=== PATIENT | male | born 1945 | race Two or more races ===

== ENCOUNTER 2016-09-02 16:38 | Inpatient (IN) | payer MEDICARE, MEDICAID ==
[~2016-09-02] VITALS: Ht 182.9 cm; Wt 105.2 kg
--- NOTE | 2016-09-02 16:58 | NUR ---
PT C/O PAIN AND SWELLING TO PENIS X 3 DAYS. PLACED ON PT ON MONITOR. VSS.
--- NOTE | 2016-09-02 17:05 | NUR ---
RAC #20 IV ACCESS. BLOOD SAMPLE COLLECTED SENT TO LAB.
[2016-09-02] MEDS ORDERED: IV SET PRIMARY PUMP SET 1 EA INFUS.SET MC ONE ×2 (17:14→19:25)
[2016-09-02] MEDS ORDERED: IV NS 0.9% 500 ML IV ONE (17:14)
--- NOTE | 2016-09-02 17:14 | NUR ---
CALLED NURSING SUP. FOR MS BED
--- NOTE | 2016-09-02 17:21 | NUR ---
CALLED PHARMACY FOR JOE
[2016-09-02] MEDS ORDERED: FLUO40CA49 PO (17:24)
[2016-09-02] MEDS ORDERED: SENN8.6T6 PO (17:24)
[2016-09-02] MEDS ORDERED: CLON0.5T4 PO (17:24)
[2016-09-02] MEDS ORDERED: LORA2TAB PO (17:24)
[2016-09-02] MEDS ORDERED: AMLO2.5T PO (17:24)
[2016-09-02] MEDS ORDERED: QUET300T2 PO (17:24)
[2016-09-02] MEDS ORDERED: MAGN400O6 PO (17:24)
[2016-09-02] MEDS ORDERED: METO25TA20 PO (17:24)
[2016-09-02] MEDS ORDERED: TAMS0.4C34 PO (17:24)
[2016-09-02] MEDS ORDERED: FERR325T28 PO (17:24)
[2016-09-02] MEDS ORDERED: ATOR40TA PO (17:24)
[2016-09-02] MEDS ORDERED: FINA5TAB11 PO (17:24)
[2016-09-02] MEDS ORDERED: IBUP-1481 PO (17:24)
[2016-09-02] MEDS ORDERED: QUET25TA PO (17:24)
[2016-09-02 17:25] LABS: BASOPHILS % (AUTO) 0.4 % (0.0-2.0); EOSINOPHILS # (AUTO) 0.2 /CMM (0.0-0.7); EOSINOPHILS % (AUTO) 2.2 % (0.0-6.0); HEMATOCRIT 38 % (39-51); HEMOGLOBIN 12.2 g/dL (13.5-17.5); LYMPHOCYTES # (AUTO) 1.9 /CMM (0.8-4.8); LYMPHOCYTES % (AUTO) 21.7 % (20.0-44.0); MEAN CORPUSCULAR HEMOGLOBIN 27 PG (26.0-33.0); MEAN CORPUSCULAR HGB CONC 33 g/dl (31.0-36.0); MEAN CORPUSCULAR VOLUME 83 fL (80-96); MONOCYTES # (AUTO) 1.1 /CMM (0.1-1.30); MONOCYTES % (AUTO) 12.8 % (2.0-12.0); NEUTROPHILS # (AUTO) 5.7 /CMM (1.8-8.9); NEUTROPHILS % (AUTO) 62.9 % (43.0-81.0); PLATELET COUNT (AUTO) 208 /CMM (150-450); RDW COEFFICIENT OF VARIATION 13.5 (11.5-15.0); RED BLOOD CELL COUNT(AUTO) 4.51 MIL/uL (4.5-6.0); WHITE BLOOD COUNT (AUTO) 8.9 K/uL (4.3-11.0)
[2016-09-02] MEDS ORDERED: MORPHINE SULFATE INJ 4 MG/ML DISP.SYRIN ONE (17:26)
[2016-09-02] MEDS ORDERED: IV NS 0.9% 500 ML BAG IV ONE (17:30)
[2016-09-02] MEDS ORDERED: MORPHINE SULFATE INJ 2 MG/ML DISP.SYRIN IV ONE (17:30)
[2016-09-02] MEDS ORDERED: PIPERACILLIN /TAZOBACTAM 3.375 G in IV D5W 50 ML IV ONE (17:30)
[2016-09-02 17:35] LABS: CALCIUM, SERUM 8.2 mg/dL (8.5-10.1); CREATININE 1.9 mg/dL (0.6-1.3); POTASSIUM 3.9 mmol/L (3.5-5.1)
--- NOTE | 2016-09-02 17:38 | NUR ---
ULTRASOUND AT BEDSIDE
[2016-09-02 17:41] LABS: ALBUMIN 3.1 g/dL (3.4-5.0); BILIRUBIN,DIRECT 0.1 mg/dL (0.0-0.2); BILIRUBIN,TOTAL 0.4 mg/dL (0.2-1.0); TOTAL PROTEIN, SERUM 8.5 g/dL (6.4-8.2)
--- NOTE | 2016-09-02 17:46 | NUR ---
PT GOING TO MS 200
[2016-09-02 17:51] LABS: INR 1.04 (0.87-1.13); PROTHROMBIN TIME 11.2 SECS (9.5-12.7)
--- NOTE | 2016-09-02 18:06 | NUR ---
PT TAKEN TO CT VIA JERMAINE
--- NOTE | 2016-09-02 18:15 | NUR ---
GAVE REPORT TO [facility] ROOM 200. WILL TRANSPORT PT ONCE RETURN FROM CT SCAN.
--- NOTE | 2016-09-02 18:19 | NUR ---
PER PT NOT SEPTIC NO NEED LACTIC ACID
--- NOTE | 2016-09-02 19:04 | NUR ---
EPIC PAGED, [facility] [place]
--- NOTE | 2016-09-02 19:13 | NUR ---
URINE SAMPLE COLLECTED SENT TO LAB
[2016-09-02] MEDS ORDERED: LEVOFLOXACIN 750 MG /D5W 150ML 150 ML IV ONE (19:25)
[2016-09-02] MEDS ORDERED: ENOXAPARIN SODIUM 40 MG/0.4 ML DISP.SYRIN SQ SCH (19:30)
[2016-09-02] MEDS ORDERED: QUETIAPINE FUMARATE 25 MG TABLET PO SCH (19:30)
[2016-09-02] MEDS ORDERED: ONDANSETRON HCL/PF 4 MG/2 ML VIAL IVP PRN (19:30)
[2016-09-02] MEDS ORDERED: LEVOFLOXACIN 750 MG /D5W 150ML 750 MG in PREMIX 1 EA IV SCH (19:30)
[2016-09-02] MEDS ORDERED: HYDROCODONE/APAP 5/325MG 1 EACH TABLET PO PRN (19:30)
[2016-09-02] MEDS: clonazePAM 0.5 MG TABLET PO SCH (19:30)
[2016-09-02] MEDS ORDERED: MORPHINE SULFATE INJ 2 MG/ML DISP.SYRIN IV PRN (19:30)
[2016-09-02] MEDS ORDERED: ZOLPIDEM TARTRATE 5 MG TABLET PO PRN (19:30)
[2016-09-02] MEDS ORDERED: ACETAMINOPHEN 325 MG TABLET PO PRN (19:30)
[2016-09-02] MEDS ORDERED: MAGNESIUM HYDROXIDE 30 ML UDC PO PRN (19:30)
[2016-09-02] MEDS ORDERED: LORAZEPAM INJ 2 MG/ML VIAL IV PRN (19:30)
[2016-09-02] MEDS ORDERED: MAG HYDROX/AL HYDROX/SIMETH 30 ML UDC PO PRN (19:30)
[2016-09-02 20:00] VITALS: BP 136/89
--- NOTE | 2016-09-02 20:00 | NUR ---
RN NOTES RECEIVED PT. FROM ER WITH DX. OF CELLULITIS,, A/OX4, FARSI SPEAKING, PT. PRIVATE PART IS SWOLLEN, DENIES PAIN, NO SOB, ADMISSION INSTRUCTION WAS GIVEN, CALL LIGHT WITHIN REACH, SIDERAILS UPX2 CONTINUE TO MONITOR
[2016-09-02 20:08] LABS: APPEARANCE,URINE TURBID (CLEAR); BILIRUBIN,URINE NEGATIVE (NEGATIVE); BLOOD, URINE 3+ Ery/uL (NEGATIVE); COLOR,URINE YELLOW (YELLOW); KETONES,URINE NEGATIVE (NEGATIVE); LEUKOCYTE ESTERASE ,URINE 2+ (NEGATIVE); NITRITE, URINE POSITIVE (NEGATIVE); PROTEIN,URINE 2+ mg/dl (NEGATIVE); UGLUCOSE NEGATIVE (NEGATIVE); UROBILINOGEN,URINE 0.2 EU/dL (0.2)
[2016-09-02 20:20] LABS: ADD URINE CULTURE YES; BACTERIA,URINE 4+ /HPF (None Seen); RBC,URINE 51-80 /HPF (0-2); SQUAMOUS EPITHELIAL CELL,UR 0-2 /HPF (None Seen); WBC,URINE TOO NUMEROUS TO COUN /HPF (0-3)
[2016-09-02] MEDS ORDERED: METOPROLOL TARTRATE 25 MG TABLET ONE (21:47)
[2016-09-02] MEDS ORDERED: SENNOSIDES 8.6 MG TABLET ONE (21:48)
[2016-09-02] MEDS ORDERED: QUETIAPINE FUMARATE 25 MG TABLET ONE (21:48)
[2016-09-02] MEDS ORDERED: TAMSULOSIN 0.4 MG CAP.SR.24H ONE (21:48)
[2016-09-02] MEDS ORDERED: FINASTERIDE (5 MG) 5 MG TABLET ONE (21:48)
[2016-09-02] MEDS ORDERED: ENOXAPARIN SODIUM 40 MG/0.4 ML DISP.SYRIN SQ ONE (21:49)
[2016-09-02] MEDS ORDERED: clonazePAM 0.5 MG TABLET ONE (21:51)
[2016-09-02] MEDS: FINASTERIDE (5 MG) 5 MG TABLET PO SCH (21:55)
[2016-09-02] MEDS: TAMSULOSIN 0.4 MG CAP.SR.24H PO SCH (21:55)
[2016-09-02] MEDS: METOPROLOL TARTRATE 25 MG TABLET PO SCH (21:56)
[2016-09-02] MEDS: SENNOSIDES 8.6 MG TABLET PO SCH (22:00)
--- NOTE | 2016-09-02 22:00 | NUR ---
RN NOTES SISTER CAME BUT PT. IS ALREADY SLEEPING.
[2016-09-03] MEDS ORDERED: SECONDARY IV SET 1 EA INFUS.SET MC ONE (00:48)
[2016-09-03] MEDS ORDERED: IV NS 0.9% 250 ML IV ONE (00:48)
[2016-09-03] MEDS ORDERED: PIPERACILLIN /TAZOBACTAM 2.25 G VIAL IV ONE ×2 (00:48→04:36)
[2016-09-03] MEDS ORDERED: IV SET PRIMARY PUMP SET 1 EA INFUS.SET MC ONE (00:48)
[2016-09-03] MEDS ORDERED: IV D5W 50 ML IV ONE ×2 (00:48→05:04)
[2016-09-03] MEDS: PIPERACILLIN /TAZOBACTAM 4.5 G in IV D5W 50 ML IV SCH ×6 (05:19→23:26)
[2016-09-03] MEDS ORDERED: Z GUARD REMEDY 4 OZ OINT TP ONE (05:20)
[2016-09-03 06:47] LABS: BASOPHILS % (AUTO) 0.2 % (0.0-2.0); EOSINOPHILS # (AUTO) 0.1 /CMM (0.0-0.7); EOSINOPHILS % (AUTO) 0.9 % (0.0-6.0); HEMATOCRIT 35 % (39-51); HEMOGLOBIN 11.5 g/dL (13.5-17.5); LYMPHOCYTES # (AUTO) 1.2 /CMM (0.8-4.8); LYMPHOCYTES % (AUTO) 13.8 % (20.0-44.0); MEAN CORPUSCULAR HEMOGLOBIN 27 PG (26.0-33.0); MEAN CORPUSCULAR HGB CONC 33 g/dl (31.0-36.0); MEAN CORPUSCULAR VOLUME 84 fL (80-96); MONOCYTES # (AUTO) 0.9 /CMM (0.1-1.30); MONOCYTES % (AUTO) 10.3 % (2.0-12.0); NEUTROPHILS # (AUTO) 6.6 /CMM (1.8-8.9); NEUTROPHILS % (AUTO) 74.8 % (43.0-81.0); PLATELET COUNT (AUTO) 198 /CMM (150-450); RDW COEFFICIENT OF VARIATION 14.6 (11.5-15.0); RED BLOOD CELL COUNT(AUTO) 4.19 MIL/uL (4.5-6.0); WHITE BLOOD COUNT (AUTO) 8.8 K/uL (4.3-11.0)
--- NOTE | 2016-09-03 06:59 | NUR ---
RN NOTES AWAKE, DENIES PAIN, NO SOB, MORNING CARE RENDERED, PT. NEEDS ATTENDED
--- NOTE | 2016-09-03 07:30 | NUR ---
MS RN NOTES RECEIVED PATIENT AWAKE ON BED, AOX3. BREATHING EVEN AND NON LABORED, DENIES ANY PAIN AT THIS TIME. CALL LIGHT WITHIN REACH, BED IN LOW POSITION FOR SAFETY MEASURES. WILL CONTINUE TO MONITOR
[2016-09-03 07:36] LABS: CALCIUM, SERUM 7.9 mg/dL (8.5-10.1); CREATININE 1.6 mg/dL (0.6-1.3); PHOSPHORUS 2.7 mg/dL (2.5-4.9); POTASSIUM 4.1 mmol/L (3.5-5.1)
[2016-09-03 08:00] VITALS: BP 142/89
--- NOTE | 2016-09-03 09:00 | NUR ---
MS RN NOTES DUE MEDS GIVEN. S/B DR. NEUMANN WITH NO NEW ORDERS MADE.
[2016-09-03] MEDS: clonazePAM 0.5 MG TABLET PO SCH ×2 (09:46→16:59)
[2016-09-03] MEDS: ATORVASTATIN 40 MG TABLET PO SCH (09:46)
[2016-09-03] MEDS: FINASTERIDE (5 MG) 5 MG TABLET PO SCH (09:47)
[2016-09-03] MEDS: AMLODIPINE BESYLATE 2.5 MG TABLET PO SCH (09:47)
[2016-09-03] MEDS: PANTOPRAZOLE 40 MG TABLET.DR PO SCH (09:47)
[2016-09-03] MEDS: FERROUS SULFATE (325 MG) 325 MG/TAB TABLET PO SCH (09:47)
[2016-09-03] MEDS: METOPROLOL TARTRATE 25 MG TABLET PO SCH ×2 (09:47→17:01)
[2016-09-03] MEDS: Z GUARD REMEDY 2 OZ OINT TP PRN (09:55)
[2016-09-03] MEDS: Z GUARD REMEDY 2 OZ OINT TP SCH (09:56)
[2016-09-03] MEDS: ENOXAPARIN SODIUM 40 MG/0.4 ML DISP.SYRIN SQ SCH (09:58)
--- NOTE | 2016-09-03 15:00 | NUR ---
MS RN NOTES PATIENT ASSISTED TO GO TO THE BATHROOM AND SIT IN THE CHAIR FOR 30 MINS. NEEDS ALL ANTICIPATED AND ATTENDED.
[2016-09-03 16:00] VITALS: BP 122/71
[2016-09-03 16:01] VITALS: BP 122/71
[2016-09-03] MEDS: QUETIAPINE FUMARATE 100 MG TABLET PO SCH ×2 (17:00→21:19)
--- NOTE | 2016-09-03 19:14 | NUR ---
MS RN NOTES ENDORSED TO INCOMING SHIFT FOR CONTINUITY OF CARE.
--- NOTE | 2016-09-03 19:30 | NUR ---
MS RN NOTE: PATIENT RESTING IN BED, NO ACUTE DISTRESS NOTED. BREATHING EVEN AND UNLABORED, NO SOB NOTED. IV TO RAC IN PLACE. BED LOCKED AND IN LOWEST POSITION, CALL LIGHT IN REACH. WILL CONTINUE TO MONITOR.
[2016-09-03 19:59] VITALS: BP 138/81
[2016-09-03] MEDS ORDERED: HEPARIN SODIUM, PORCINE 5000 UNITS/1 ML VIAL SQ SCH (21:00)
[2016-09-03] MEDS: TAMSULOSIN 0.4 MG CAP.SR.24H PO SCH (21:19)
[2016-09-03] MEDS: SENNOSIDES 8.6 MG TABLET PO SCH (21:19)
[2016-09-03] MEDS: IV NS 0.9% 1,000 ML IV PRN (23:26)
--- NOTE | 2016-09-04 03:00 | NUR ---
MS RN NOTE: PATIENT SLEEPING IN BED, NO ACUTE DISTRESS NOTED. BREATHING EVEN AND UNLABORED, NO SOB NOTED. BED LOCKED AND IN LOWEST POSITION, CALL LIGHT IN REACH. WILL CONTINUE TO MONITOR.
[2016-09-04] MEDS: PIPERACILLIN /TAZOBACTAM 4.5 G in IV D5W 50 ML IV SCH ×4 (05:56→23:12)
--- NOTE | 2016-09-04 06:00 | NUR ---
MS RN NOTE: PATIENT RESTING IN BED, NO ACUTE DISTRESS NOTED. BREATHING EVEN AND UNLABORED, NO SOB NOTED. IV TO RAC IN PLACE, INFUSING NS AT 75 ML/HR. BED LOCKED AND IN LOWEST POSITION, CALL LIGHT IN REACH. WILL ENDORSE TO DAY NURSE TO CONTINUE WITH PLAN OF CARE.
[2016-09-04] MEDS: PANTOPRAZOLE 40 MG TABLET.DR PO SCH (06:42)
--- NOTE | 2016-09-04 07:30 | NUR ---
RN MS NOTES PT IN BED, RESTING, AWAKE, ALERT AND ORIENTED, NO COMPLAINT OF PAIN, RESPIRATIONS NORMAL, IV FLUIDS INFUSING WELL, CALL LIGHT WITHIN REACH.
[2016-09-04 08:00] VITALS: BP 127/73
[2016-09-04] MEDS: ATORVASTATIN 40 MG TABLET PO SCH (08:33)
[2016-09-04] MEDS: FLUOXETINE HCL 20 MG CAPSULE PO SCH (08:33)
[2016-09-04] MEDS: QUETIAPINE FUMARATE 100 MG TABLET PO SCH ×3 (08:34→21:35)
[2016-09-04] MEDS: clonazePAM 0.5 MG TABLET PO SCH ×2 (08:34→16:38)
[2016-09-04] MEDS: FINASTERIDE (5 MG) 5 MG TABLET PO SCH (08:34)
[2016-09-04] MEDS: FERROUS SULFATE (325 MG) 325 MG/TAB TABLET PO SCH (08:34)
[2016-09-04] MEDS: METOPROLOL TARTRATE 25 MG TABLET PO SCH ×2 (08:35→16:37)
[2016-09-04] MEDS: AMLODIPINE BESYLATE 2.5 MG TABLET PO SCH (08:35)
[2016-09-04] MEDS: Z GUARD REMEDY 2 OZ OINT TP PRN (08:37)
[2016-09-04] MEDS: ENOXAPARIN SODIUM 40 MG/0.4 ML DISP.SYRIN SQ SCH (08:46)
[2016-09-04] MEDS: Z GUARD REMEDY 2 OZ OINT TP SCH (09:00)
--- NOTE | 2016-09-04 12:04 | NUR ---
RN MS NOTES PT IN BED, SLEEPS INTERMITTENTLY, ALERT AND ORIENTED, DENIES PAIN, NOT IN DISTRESS, SEEN BY DR. MANZANARES, PLAN OF CARE DISCUSSED WITH PT, VERBALIZED UNDERSTANDING, IV FLUIDS INFUSING WELL, NEEDS ATTENDED.
--- NOTE | 2016-09-04 12:19 | NUR ---
WOUND CARE CONSULT: PATIENT SEEN AND SKIN ASSESSMENT DONE. PATIENT ALERT, ORIENTED, URGE INCONTINENCE, SCOTTIE 20, INDEPENDENT WITH BED MOBILITY. SEE TODAY'S SKIN ASSESSMENT IN PCS ALONG WITH RECOMMENDATIONS DISCUSSED WITH NURSING STAFF INCLUDING MOISTURE PROTECTION ORDERED. MD IN AGREEMENT WITH PLAN OF CARE. Addendum: 09/04/16 at 1221 by JULIA SPENCE WNDNU Amended: Links added.
[2016-09-04 16:00] VITALS: BP 133/82
[2016-09-04] MEDS: IV NS 0.9% 1,000 ML IV PRN (17:23)
--- NOTE | 2016-09-04 18:26 | NUR ---
RN MS NOTES PT IN BED, AWAKE, EATING DINNER, DENIES PAIN OR ANY DISCOMFORT, RESPIRATIONS NORMAL, PM MEDICATION GIVEN, PM CARE RENDERED, ASSISTED IN TURNING AND REPOSITIONING Q2 HRS, ALL NEEDS ATTENDED.
[2016-09-04 20:00] VITALS: BP 152/89
--- NOTE | 2016-09-04 20:10 | NUR ---
MS RN OPENING NOTES: PATIENT RESTING IN BED. NO ACUTE DISTRESS OR SOB NOTED. PT A/OX4. BREATHING EVEN AND UNLABORED. BED LOCKED IN LOWEST POSITION. CALL LIGHT WITHIN PT REACH. WILL CONTINUE TO MONITOR.
[2016-09-04 20:14] VITALS: BP 152/89
[2016-09-04] MEDS: TAMSULOSIN 0.4 MG CAP.SR.24H PO SCH (21:35)
[2016-09-04] MEDS: SENNOSIDES 8.6 MG TABLET PO SCH (21:36)
--- NOTE | 2016-09-05 02:00 | NUR ---
MS RN NOTES: PATIENT ASLEEP IN BED. NO ACUTE DISTRESS OR SOB NOTED. BREATHING EVEN AND UNLABORED. BED LOCKED IN LOWEST POSITION. CALL LIGHT WITHIN PT REACH. WILL CONTINUE TO MONITOR.
[2016-09-05] MEDS: PIPERACILLIN /TAZOBACTAM 4.5 G in IV D5W 50 ML IV SCH ×3 (05:05→17:23)
--- NOTE | 2016-09-05 06:05 | NUR ---
MS RN CLOSING NOTES: PATIENT RESTING IN BED. NO ACUTE DISTRESS OR SOB NOTED. PT A/OX3. BREATHING EVEN AND UNLABORED. RIGHT AC 20G IV PATENT AND INTACT INFUSING AT 75ML/HR. BED LOCKED IN LOWEST POSITION. KEPT CLEAN, DRY, AND COMFORTABLE. CALL LIGHT WITHIN PT REACH. WILL ENDORSE TO DAY SHIFT NURSE.
[2016-09-05] MEDS: PANTOPRAZOLE 40 MG TABLET.DR PO SCH (06:38)
[2016-09-05 08:00] VITALS: BP 142/85
--- NOTE | 2016-09-05 08:00 | NUR ---
MS2/RN OPENING NOTE PT. AWAKE SITTING UP IN BED A&OX3. PT. IS NOT IN DISTRESS, BREATHING IS EVEN AND UNLABORED. PT. DENIES PAIN. PT. HAS A RUNNING IV ON LEFT ANTECUBITAL SITE. PT. HAS A PRIMARY NS IV NEAR BEDSIDE STOPPED. PT. IS WEARING A DIAPER. PT. HAS CALL LIGHT WITHIN REACH, BED ALARM ON, BED IN LOW POSITION WITH 2 SIDE RAILS UP.
--- NOTE | 2016-09-05 08:05 | NUR ---
AFTER EATING BREAKFAST RESUMED PT.S IV INFUSION.
[2016-09-05] MEDS: FERROUS SULFATE (325 MG) 325 MG/TAB TABLET PO SCH (08:45)
[2016-09-05] MEDS: QUETIAPINE FUMARATE 100 MG TABLET PO SCH ×3 (08:49→21:19)
[2016-09-05] MEDS: FINASTERIDE (5 MG) 5 MG TABLET PO SCH (08:49)
[2016-09-05] MEDS: FLUOXETINE HCL 20 MG CAPSULE PO SCH (08:50)
[2016-09-05] MEDS: Z GUARD REMEDY 2 OZ OINT TP PRN ×2 (08:51→08:56)
[2016-09-05] MEDS: METOPROLOL TARTRATE 25 MG TABLET PO SCH ×2 (08:52→16:56)
[2016-09-05] MEDS: AMLODIPINE BESYLATE 2.5 MG TABLET PO SCH (08:53)
[2016-09-05] MEDS: clonazePAM 0.5 MG TABLET PO SCH ×2 (08:53→16:55)
[2016-09-05] MEDS: ENOXAPARIN SODIUM 40 MG/0.4 ML DISP.SYRIN SQ SCH (09:01)
[2016-09-05] MEDS: ATORVASTATIN 40 MG TABLET PO SCH (09:02)
[2016-09-05] MEDS: Z GUARD REMEDY 2 OZ OINT TP SCH (10:01)
[2016-09-05 16:00] VITALS: BP 136/89
--- NOTE | 2016-09-05 17:54 | NUR ---
MS2/RN CLOSING NOTE PT. IS AWAKE SITTING UP IN BED, A&OX3, NOT IN DISTRESS. BREATHING EVENLY AND UNLABORED. PT. HAS A RIGHT ANTECUBITAL IV ACCESS, WITH NS IV FLUIDS RUNNING. PT. HAD PERINEAL CARE, AND SPONGE BATH. SCROTAL EDEMA PRESENT, AND PT. C/O PAIN ON REPOSITIONING. NEW ORDERS INCLUDING SCROTAL ULTRASOUND, CBC, BMP, AND PT EVALUATION. URINE CULTURE CAME BACK POSITIVE FOR KLEBSIELLA PNEUMONIA. PT. BED IN LOWEST POSITION, 2 RAILS UP, AND CALL LIGHT WITHIN REACH.
--- NOTE | 2016-09-05 19:30 | NUR ---
MS RN OPENING NOTES: PATIENT IN BED, AOX3, ON ROOM AIR, BREATHING EVEN AND UNLABORED. ABLE TO MAKE NEEDS KNOWN. APPEARS CALM AND IN NO DISTRESS. DENIES ANY PAIN AT THIS TIME. PIV OVER RAC G 20 INTACT AND INFUSING WELL WITH NS RUNNING AT 75 ML/HR. PROVIDED FOR COMFORT AND SAFETY. WILL CONT TO MONITOR.
[2016-09-05 20:00] VITALS: BP 131/83
[2016-09-05] MEDS: SENNOSIDES 8.6 MG TABLET PO SCH (21:18)
[2016-09-05] MEDS: TAMSULOSIN 0.4 MG CAP.SR.24H PO SCH (21:18)
[2016-09-05 22:00] VITALS: BP 131/83
[2016-09-06] MEDS: PIPERACILLIN /TAZOBACTAM 4.5 G in IV D5W 50 ML IV SCH ×3 (00:28→12:52)
[2016-09-06] MEDS: IV NS 0.9% 1,000 ML IV PRN (05:44)
--- NOTE | 2016-09-06 06:30 | NUR ---
RN NOTES: INSERTED ANOTHER PIV LINE OVER R WRIST G 20, INTACT AND PATENT. NEW LINE INSERTED BECAUSE PATIENT'S RAC PIV KEEPS BEEPING PATIENT KEEPS BENDING ARM.
--- NOTE | 2016-09-06 06:42 | NUR ---
MS RN CLOSING NOTES: PATIENT IN BED, AOX3, ON ROOM AIR, BREATHING EVEN AND UNLABORED. DENIES PAIN. PIV ACCESS OVER R WRIST G20 INTACT AND PATENT, INFUSING WELL WITH NS RUNNING AT 75 ML/HR. DUE MEDS GIVEN. PROVIDED FOR COMFORT AND SAFETY. NO ACUTE CHANGE IN CONDITION NOTED. WILL ENDORSE TO AM RN FOR JAMIN.
[2016-09-06 06:45] LABS: BASOPHILS % (AUTO) 0.1 % (0.0-2.0); EOSINOPHILS # (AUTO) 0.4 /CMM (0.0-0.7); HEMATOCRIT 34 % (39-51); HEMOGLOBIN 11.1 g/dL (13.5-17.5); LYMPHOCYTES # (AUTO) 1.6 /CMM (0.8-4.8); LYMPHOCYTES % (AUTO) 20.7 % (20.0-44.0); MEAN CORPUSCULAR HEMOGLOBIN 28 PG (26.0-33.0); MEAN CORPUSCULAR HGB CONC 33 g/dl (31.0-36.0); MEAN CORPUSCULAR VOLUME 84 fL (80-96); MONOCYTES # (AUTO) 0.8 /CMM (0.1-1.30); MONOCYTES % (AUTO) 10.6 % (2.0-12.0); NEUTROPHILS # (AUTO) 4.8 /CMM (1.8-8.9); NEUTROPHILS % (AUTO) 63.6 % (43.0-81.0); PLATELET COUNT (AUTO) 244 /CMM (150-450); RDW COEFFICIENT OF VARIATION 14.6 (11.5-15.0); RED BLOOD CELL COUNT(AUTO) 4.05 MIL/uL (4.5-6.0); WHITE BLOOD COUNT (AUTO) 7.6 K/uL (4.3-11.0)
[2016-09-06 07:01] LABS: CALCIUM, SERUM 8.4 mg/dL (8.5-10.1); CREATININE 1.6 mg/dL (0.6-1.3)
[2016-09-06 08:00] VITALS: BP 135/83
[2016-09-06] MEDS: FINASTERIDE (5 MG) 5 MG TABLET PO SCH (08:32)
[2016-09-06] MEDS: ATORVASTATIN 40 MG TABLET PO SCH (08:33)
[2016-09-06] MEDS: FLUOXETINE HCL 20 MG CAPSULE PO SCH (08:33)
[2016-09-06] MEDS: FERROUS SULFATE (325 MG) 325 MG/TAB TABLET PO SCH (08:33)
[2016-09-06] MEDS: PANTOPRAZOLE 40 MG TABLET.DR PO SCH (08:33)
[2016-09-06] MEDS: clonazePAM 0.5 MG TABLET PO SCH ×2 (08:33→17:28)
[2016-09-06] MEDS: QUETIAPINE FUMARATE 100 MG TABLET PO SCH ×2 (08:34→17:28)
[2016-09-06] MEDS: METOPROLOL TARTRATE 25 MG TABLET PO SCH ×2 (08:35→17:29)
[2016-09-06] MEDS: AMLODIPINE BESYLATE 2.5 MG TABLET PO SCH (08:35)
[2016-09-06] MEDS: ENOXAPARIN SODIUM 40 MG/0.4 ML DISP.SYRIN SQ SCH (08:36)
[2016-09-06] MEDS: Z GUARD REMEDY 2 OZ OINT TP SCH (12:52)
[2016-09-06] MEDS ORDERED: LEVOFLOXACIN 500 MG /D5W 100ML 500 MG in PREMIX 1 EA IV SCH (14:30)
[2016-09-06] MEDS ORDERED: VANCOMYCIN 1.5 GM in IV D5W 500 ML IV SCH (14:30)
[2016-09-06 16:00] VITALS: BP 141/84
[2016-09-06] MEDS ORDERED: FEE PK DOSING 1 MIN EA MC ONE (16:05)
--- NOTE | 2016-09-06 19:30 | NUR ---
MS2/RN- CLOSING NOTE PT. IS BEING DISCHARGED TO [facility], AND REPORT WAS PROVIDED TO CHARGE NURSE. PT. IS AWAKE, A&OX3. PT. HAS A RIGHT ANTECUBITAL, AND RIGHT WRIST IV ACCESS SITE THAT WILL REMAIN INTACT FOR DISCHARGE. PT. IS NOT IN DISTRESS, BREATHING EVENLY, AND UNLABORED.
[2016-09-06 20:00] VITALS: BP 142/91
--- NOTE | 2016-09-06 20:30 | NUR ---
MS RN NOTE: PATIENT RESTING IN BED, NO ACUTE DISTRESS NOTED. BREATHING EVEN AND UNLABORED, NO SOB NOTED. IV TO RIGHT WRIST AND RAC TO STAY IN PLACE, PATIENT TO CONTINUE IV ANTIBIOTIC AT FACILITY. EMT ARRIVED TO TRANSFER PAT[facility]. REPORT GIVEN TO EMT, AND DISCHARGE PAPERWORK PREPARED AND COMPLETED DURING DAY SHIFT. VITAL SIGNS STABLE. PATIENT OFF THE FLOOR WITH BELONGINGS IN STABLE CONDITION WITH EMT.
== END 2016-09-06 20:30 | DRG 727 ==
LOC: ER 16:42 → MEDSG2 18:06
PROVIDERS: ADMIT Legal Medicine; ATTEND Legal Medicine
DX: N49.2 Inflammatory disorders of scrotum (principal); N17.0 Acute kidney failure with tubular necrosis; N39.0 Urinary tract infection, site not specified; E44.0 Moderate protein-calorie malnutrition; E78.5 Hyperlipidemia, unspecified; F20.9 Schizophrenia, unspecified; F32.9 Major depressive disorder, single episode, unspecified; N40.0 Benign prostatic hyperplasia without lower urinary tract symptoms; I10 Essential (primary) hypertension; E88.09 Other disorders of plasma-protein metabolism, not elsewhere classified; M62.50 Muscle wasting and atrophy, not elsewhere classified, unspecified site; Z68.31 Body mass index [BMI] 31.0-31.9, adult; B96.1 Klebsiella pneumoniae [K. pneumoniae] as the cause of diseases classified elsewhere; N45.1 Epididymitis; I71.4 Abdominal aortic aneurysm, without rupture
CPT/HCPCS: 36415; 71010-TC; 72192-TC; 76870-TC; 80048-TC; 80076-TC; 81000-TC; 83735-TC; 84100-TC; 85025-TC; 85730-TC; 87040-TC; 87086-TC; 87186-TC; A4216; A4606; J1650; J1956; J2270; J2543; J3370; J7030; J7040; J7050; J7060; Z7610

== ENCOUNTER 2018-02-28 19:12 | Inpatient (IN) | payer MEDICARE, MEDICAID ==
[~2018-02-28] VITALS: Ht 182.9 cm; Wt 101.6 kg
[~2018-02-28 19:12] MED LIST: AMLO2.5T3 PO; ATOR40TA PO; CLON0.5T12 PO; FERR325T28 PO; FINA5TAB11 PO; FLUO40CA49 PO; IBUP-1953 PO; LORA2TAB PO; MAGN400O6 PO; METO25TA20 PO; QUET25TA PO; QUET300T2 PO; SENN-167 PO; TAMS0.4C34 PO
[2018-02-28] MEDS ORDERED: IV NS 0.9% 1,000 ML BAG IV ONE (20:00)
[2018-02-28 20:12] LABS: BASOPHILS # (AUTO) 0.1 /CMM (0.0-0.2); BASOPHILS % (AUTO) 1.2 % (0.0-2.0); EOSINOPHILS % (AUTO) 15.6 % (0.0-6.0); HEMATOCRIT 37 % (39-51); HEMOGLOBIN 12.2 g/dL (13.5-17.5); LYMPHOCYTES # (AUTO) 2.1 /CMM (0.8-4.8); LYMPHOCYTES % (AUTO) 22.5 % (20.0-44.0); MEAN CORPUSCULAR HGB CONC 33 g/dl (31.0-36.0); MEAN CORPUSCULAR VOLUME 83 fL (80-96); MONOCYTES # (AUTO) 0.5 /CMM (0.1-1.30); NEUTROPHILS # (AUTO) 5.1 /CMM (1.8-8.9); NEUTROPHILS % (AUTO) 55.7 % (43.0-81.0); PLATELET COUNT (AUTO) 218 /CMM (150-450); RDW COEFFICIENT OF VARIATION 14.5 (11.5-15.0); RED BLOOD CELL COUNT(AUTO) 4.46 MIL/uL (4.5-6.0); WHITE BLOOD COUNT (AUTO) 9.2 K/uL (4.3-11.0)
[2018-02-28 20:14] LABS: APPEARANCE,URINE Cloudy (CLEAR); BILIRUBIN,URINE Negative (NEGATIVE); BLOOD, URINE Small Ery/uL (NEGATIVE); COLOR,URINE Yellow (YELLOW); KETONES,URINE Negative (NEGATIVE); LEUKOCYTE ESTERASE ,URINE Large (NEGATIVE); NITRITE, URINE Negative (NEGATIVE); PROTEIN,URINE 30 mg/dl (NEGATIVE); UGLUCOSE Negative (NEGATIVE); UROBILINOGEN,URINE 0.2 EU/dL (0.2)
[2018-02-28 20:22] LABS: CALCIUM, SERUM 9.2 mg/dL (8.5-10.1); CREATININE 2.7 mg/dL (0.6-1.3); POTASSIUM 4.4 mmol/L (3.5-5.1)
[2018-02-28 20:26] LABS: INR 1.08 (0.85-1.15)
[2018-02-28 20:26] LABS: RBC,URINE 10 /HPF (0-2); WBC,URINE TOO NUMEROUS TO COUN /HPF (0-3)
[2018-02-28 20:27] LABS: BACTERIA,URINE Moderate /HPF (None Seen); SQUAMOUS EPITHELIAL CELL,UR Moderate /HPF (None Seen)
[2018-02-28 20:28] LABS: ALBUMIN 3.4 g/dL (3.4-5.0); BILIRUBIN,DIRECT 0.1 mg/dL (0.0-0.2); BILIRUBIN,TOTAL 0.4 mg/dL (0.2-1.0); TOTAL PROTEIN, SERUM 8.5 g/dL (6.4-8.2)
[2018-02-28] MEDS ORDERED: AZITHROMYCIN 500 MG in IV D5W 250 ML IV STA (21:09)
[2018-02-28] MEDS ORDERED: CEFTRIAXONE 1 G in IV D5W 50 ML IV ONE (21:30)
[2018-02-28] MEDS ORDERED: AZITHROMYCIN 500 MG VIAL ONE (21:32)
[2018-02-28] MEDS ORDERED: CEFTRIAXONE 1GM BAG (ER ONLY) 50 ML IV ONE (21:32)
[2018-02-28 23:30] VITALS: BP 153/98
[2018-03-01] MEDS ORDERED: ONDANSETRON HCL/PF 4 MG/2 ML VIAL IV PRN
[2018-03-01] MEDS ORDERED: ACETAMINOPHEN 325 MG TABLET PO PRN
[2018-03-01] MEDS ORDERED: IPRATROPIUM NEB FS 0.5 MG/2.5 ML AMPUL.NEB NEB PRN
[2018-03-01] MEDS ORDERED: ALBUTEROL FS 2.5 MG/3 ML VIAL.NEB NEB PRN
[2018-03-01] MEDS ORDERED: LORAZEPAM INJ 2 MG/ML VIAL IV PRN
[2018-03-01] MEDS: IV NS 0.9% 1,000 ML IV PRN ×2 (00:35→10:40)
[2018-03-01 06:34] LABS: BASOPHILS # (AUTO) 0.1 /CMM (0.0-0.2); BASOPHILS % (AUTO) 0.8 % (0.0-2.0); EOSINOPHILS % (AUTO) 15.6 % (0.0-6.0); HEMATOCRIT 36 % (39-51); HEMOGLOBIN 11.7 g/dL (13.5-17.5); LYMPHOCYTES # (AUTO) 1.5 /CMM (0.8-4.8); MEAN CORPUSCULAR HGB CONC 32 g/dl (31.0-36.0); MEAN CORPUSCULAR VOLUME 86 fL (80-96); MONOCYTES # (AUTO) 0.7 /CMM (0.1-1.30); MONOCYTES % (AUTO) 8.5 % (2.0-12.0); NEUTROPHILS # (AUTO) 4.5 /CMM (1.8-8.9); NEUTROPHILS % (AUTO) 56.1 % (43.0-81.0); PLATELET COUNT (AUTO) 195 /CMM (150-450); RDW COEFFICIENT OF VARIATION 15.5 (11.5-15.0)
[2018-03-01 06:55] LABS: CALCIUM, SERUM 8.4 mg/dL (8.5-10.1); CREATININE 2.4 mg/dL (0.6-1.3); POTASSIUM 3.9 mmol/L (3.5-5.1)
[2018-03-01] MEDS: ALBUTEROL FS 2.5 MG/3 ML VIAL.NEB NEB SCH ×3 (07:35→19:45)
[2018-03-01] MEDS: IPRATROPIUM NEB FS 0.5 MG/2.5 ML AMPUL.NEB NEB SCH ×3 (07:35→19:45)
[2018-03-01] MEDS ORDERED: PANT40TA2 PO (07:51)
[2018-03-01] MEDS ORDERED: DOCU-141 PO (07:51)
[2018-03-01] MEDS ORDERED: TRAZ-214 PO (07:51)
[2018-03-01 08:00] VITALS: BP 156/90
[2018-03-01] MEDS: PANTOPRAZOLE 40 MG TABLET.DR PO SCH (08:12)
[2018-03-01] MEDS: ENOXAPARIN SODIUM 30 MG/0.3 ML DISP.SYRIN SQ SCH (08:18)
[2018-03-01] MEDS: NICOTINE PATCH (21MG) 21 MG PATCH.TD24 TD SCH (08:20)
[2018-03-01] MEDS ORDERED: Z GUARD REMEDY 2 OZ OINT TP PRN (10:30)
[2018-03-01] MEDS ORDERED: IBUPROFEN 400 MG TABLET PO PRN (13:00)
[2018-03-01] MEDS ORDERED: MAGNESIUM HYDROXIDE 30 ML UDC PO PRN (13:00)
[2018-03-01] MEDS ORDERED: LORAZEPAM 1 MG TABLET PO PRN (13:30)
[2018-03-01 16:00] VITALS: BP 169/82
[2018-03-01] MEDS: clonazePAM 0.5 MG TABLET PO SCH (16:54)
[2018-03-01] MEDS: METOPROLOL TARTRATE 25 MG TABLET PO SCH (16:59)
[2018-03-01 17:00] VITALS: BP 169/82
[2018-03-01] MEDS: LACTOBACILLUS RHAMNOSUS GG 1 EACH CAP.SPRINK PO SCH (17:38)
[2018-03-01 17:41] VITALS: BP 154/75
[2018-03-01 20:00] VITALS: BP 155/95
[2018-03-01] MEDS ORDERED: CEFTRIAXONE 1 G VIAL IM SCH (21:00)
[2018-03-01] MEDS: CEFTRIAXONE 1 G in IV D5W 50 ML IV SCH (21:02)
[2018-03-01] MEDS: TAMSULOSIN 0.4 MG CAP.SR.24H PO SCH (21:16)
[2018-03-01] MEDS: SENNOSIDES 8.6 MG TABLET PO SCH (21:16)
[2018-03-01] MEDS: QUETIAPINE FUMARATE 100 MG TABLET PO SCH (21:16)
[2018-03-01] MEDS ORDERED: TRAZODONE 50 MG TABLET PO SCH (22:00)
[2018-03-01] MEDS: AZITHROMYCIN 500 MG in IV D5W 250 ML IV SCH (22:46)
[2018-03-01] MEDS: TRAZODONE 50 MG TABLET PO SCH (22:46)
[2018-03-02] MEDS: IV NS 0.9% 1,000 ML IV PRN ×2 (03:06→16:52)
[2018-03-02] MEDS: IPRATROPIUM NEB FS 0.5 MG/2.5 ML AMPUL.NEB NEB SCH ×3 (07:08→19:42)
[2018-03-02] MEDS: ALBUTEROL FS 2.5 MG/3 ML VIAL.NEB NEB SCH ×3 (07:08→19:42)
[2018-03-02] MEDS ORDERED: PANTOPRAZOLE 40 MG TABLET.DR PO SCH (07:30)
[2018-03-02 07:41] LABS: CALCIUM, SERUM 8.3 mg/dL (8.5-10.1); CREATININE 2.1 mg/dL (0.6-1.3); MAGNESIUM 1.5 mg/dL (1.8-2.4); POTASSIUM 3.6 mmol/L (3.5-5.1)
[2018-03-02 07:48] LABS: BASOPHILS # (AUTO) 0.1 /CMM (0.0-0.2); BASOPHILS % (AUTO) 0.9 % (0.0-2.0); EOSINOPHILS % (AUTO) 10.3 % (0.0-6.0); HEMATOCRIT 33 % (39-51); HEMOGLOBIN 10.7 g/dL (13.5-17.5); LYMPHOCYTES # (AUTO) 1.5 /CMM (0.8-4.8); LYMPHOCYTES % (AUTO) 21.5 % (20.0-44.0); MEAN CORPUSCULAR HGB CONC 32 g/dl (31.0-36.0); MEAN CORPUSCULAR VOLUME 85 fL (80-96); MONOCYTES # (AUTO) 0.5 /CMM (0.1-1.30); MONOCYTES % (AUTO) 7.3 % (2.0-12.0); NEUTROPHILS # (AUTO) 4.1 /CMM (1.8-8.9); PLATELET COUNT (AUTO) 185 /CMM (150-450); RDW COEFFICIENT OF VARIATION 15.2 (11.5-15.0); RED BLOOD CELL COUNT(AUTO) 3.87 MIL/uL (4.5-6.0); WHITE BLOOD COUNT (AUTO) 6.9 K/uL (4.3-11.0)
[2018-03-02 08:00] VITALS: BP 152/90
[2018-03-02] MEDS: NICOTINE PATCH (21MG) 21 MG PATCH.TD24 TD SCH (08:29)
[2018-03-02] MEDS: PANTOPRAZOLE 40 MG TABLET.DR PO SCH (08:29)
[2018-03-02] MEDS: FINASTERIDE (5 MG) 5 MG TABLET PO SCH (08:29)
[2018-03-02] MEDS: DOCUSATE SODIUM 100 MG CAPSULE PO SCH (08:29)
[2018-03-02] MEDS: FLUOXETINE HCL 20 MG CAPSULE PO SCH (08:29)
[2018-03-02] MEDS: clonazePAM 0.5 MG TABLET PO SCH ×2 (08:30→16:51)
[2018-03-02] MEDS: AMLODIPINE BESYLATE 2.5 MG TABLET PO SCH (08:30)
[2018-03-02] MEDS: METOPROLOL TARTRATE 25 MG TABLET PO SCH ×2 (08:30→16:51)
[2018-03-02] MEDS: ATORVASTATIN 40 MG TABLET PO SCH (08:30)
[2018-03-02] MEDS: LACTOBACILLUS RHAMNOSUS GG 1 EACH CAP.SPRINK PO SCH ×2 (08:30→16:51)
[2018-03-02] MEDS: ENOXAPARIN SODIUM 30 MG/0.3 ML DISP.SYRIN SQ SCH (08:31)
[2018-03-02] MEDS ORDERED: Magnesium 1GM/D5W 100ML PREMIX 100 ML IV SCH (11:52)
[2018-03-02 16:00] VITALS: BP 133/88
[2018-03-02 20:00] VITALS: BP 160/98
[2018-03-02] MEDS: CEFTRIAXONE 1 G in IV D5W 50 ML IV SCH (20:19)
[2018-03-02] MEDS: SENNOSIDES 8.6 MG TABLET PO SCH (22:06)
[2018-03-02] MEDS: QUETIAPINE FUMARATE 100 MG TABLET PO SCH (22:06)
[2018-03-02] MEDS: AZITHROMYCIN 500 MG in IV D5W 250 ML IV SCH (22:06)
[2018-03-02] MEDS: TAMSULOSIN 0.4 MG CAP.SR.24H PO SCH (22:06)
[2018-03-02] MEDS: TRAZODONE 50 MG TABLET PO SCH (22:06)
[2018-03-03] MEDS: IV NS 0.9% 1,000 ML IV PRN ×2 (05:57→17:37)
[2018-03-03 06:50] LABS: CALCIUM, SERUM 8.3 mg/dL (8.5-10.1); CREATININE 1.7 mg/dL (0.6-1.3); MAGNESIUM 1.7 mg/dL (1.8-2.4); PHOSPHORUS 3.7 mg/dL (2.5-4.9); POTASSIUM 3.4 mmol/L (3.5-5.1)
[2018-03-03 07:05] LABS: BASOPHILS # (AUTO) 0.1 /CMM (0.0-0.2); BASOPHILS % (AUTO) 1.1 % (0.0-2.0); EOSINOPHILS % (AUTO) 9.5 % (0.0-6.0); HEMATOCRIT 33 % (39-51); HEMOGLOBIN 10.6 g/dL (13.5-17.5); LYMPHOCYTES # (AUTO) 1.6 /CMM (0.8-4.8); LYMPHOCYTES % (AUTO) 24.5 % (20.0-44.0); MEAN CORPUSCULAR HGB CONC 32 g/dl (31.0-36.0); MEAN CORPUSCULAR VOLUME 85 fL (80-96); MONOCYTES # (AUTO) 0.5 /CMM (0.1-1.30); MONOCYTES % (AUTO) 8.3 % (2.0-12.0); NEUTROPHILS # (AUTO) 3.7 /CMM (1.8-8.9); NEUTROPHILS % (AUTO) 56.6 % (43.0-81.0); PLATELET COUNT (AUTO) 191 /CMM (150-450); RDW COEFFICIENT OF VARIATION 15.3 (11.5-15.0); WHITE BLOOD COUNT (AUTO) 6.5 K/uL (4.3-11.0)
[2018-03-03] MEDS: IPRATROPIUM NEB FS 0.5 MG/2.5 ML AMPUL.NEB NEB SCH ×3 (07:12→19:30)
[2018-03-03] MEDS: ALBUTEROL FS 2.5 MG/3 ML VIAL.NEB NEB SCH ×3 (07:12→19:30)
[2018-03-03 08:00] VITALS: BP 147/95
[2018-03-03] MEDS: FINASTERIDE (5 MG) 5 MG TABLET PO SCH (08:16)
[2018-03-03] MEDS: LACTOBACILLUS RHAMNOSUS GG 1 EACH CAP.SPRINK PO SCH ×2 (08:16→17:36)
[2018-03-03] MEDS: DOCUSATE SODIUM 100 MG CAPSULE PO SCH (08:16)
[2018-03-03] MEDS: PANTOPRAZOLE 40 MG TABLET.DR PO SCH (08:16)
[2018-03-03] MEDS: AMLODIPINE BESYLATE 2.5 MG TABLET PO SCH (08:17)
[2018-03-03] MEDS: clonazePAM 0.5 MG TABLET PO SCH ×2 (08:17→17:36)
[2018-03-03] MEDS: METOPROLOL TARTRATE 25 MG TABLET PO SCH ×2 (08:17→17:36)
[2018-03-03] MEDS: FLUOXETINE HCL 20 MG CAPSULE PO SCH (08:18)
[2018-03-03] MEDS: ATORVASTATIN 40 MG TABLET PO SCH (08:18)
[2018-03-03] MEDS: NICOTINE PATCH (21MG) 21 MG PATCH.TD24 TD SCH (08:18)
[2018-03-03] MEDS: ENOXAPARIN SODIUM 30 MG/0.3 ML DISP.SYRIN SQ SCH (08:25)
[2018-03-03] MEDS ORDERED: Magnesium 1GM/D5W 100ML PREMIX 100 ML IV SCH (09:36)
[2018-03-03] MEDS ORDERED: POTASSIUM CHLORIDE 10 MEQ TABLET.SA PO ONE (11:00)
[2018-03-03 16:00] VITALS: BP 160/95
[2018-03-03 20:00] VITALS: BP_SYST 164; BP_DIAS 89; BP_DIAS 98
[2018-03-03] MEDS: CEFTRIAXONE 1 G in IV D5W 50 ML IV SCH (20:40)
[2018-03-03] MEDS: TAMSULOSIN 0.4 MG CAP.SR.24H PO SCH (22:09)
[2018-03-03] MEDS: QUETIAPINE FUMARATE 100 MG TABLET PO SCH (22:09)
[2018-03-03] MEDS: TRAZODONE 50 MG TABLET PO SCH (22:09)
[2018-03-03] MEDS: AZITHROMYCIN 500 MG in IV D5W 250 ML IV SCH (22:09)
[2018-03-03] MEDS: SENNOSIDES 8.6 MG TABLET PO SCH (22:10)
[2018-03-04] MEDS: IV NS 0.9% 1,000 ML IV PRN (05:38)
[2018-03-04 06:14] LABS: CALCIUM, SERUM 8.6 mg/dL (8.5-10.1); MAGNESIUM 1.9 mg/dL (1.8-2.4); POTASSIUM 3.8 mmol/L (3.5-5.1)
[2018-03-04] MEDS: ALBUTEROL FS 2.5 MG/3 ML VIAL.NEB NEB SCH ×3 (07:55→19:14)
[2018-03-04] MEDS: IPRATROPIUM NEB FS 0.5 MG/2.5 ML AMPUL.NEB NEB SCH ×3 (07:55→19:14)
[2018-03-04 08:00] VITALS: BP 162/87
[2018-03-04] MEDS: clonazePAM 0.5 MG TABLET PO SCH ×2 (08:43→17:09)
[2018-03-04] MEDS: ATORVASTATIN 40 MG TABLET PO SCH (08:43)
[2018-03-04] MEDS: LACTOBACILLUS RHAMNOSUS GG 1 EACH CAP.SPRINK PO SCH ×2 (08:44→17:09)
[2018-03-04] MEDS: FINASTERIDE (5 MG) 5 MG TABLET PO SCH (08:44)
[2018-03-04] MEDS: FLUOXETINE HCL 20 MG CAPSULE PO SCH (08:44)
[2018-03-04] MEDS: DOCUSATE SODIUM 100 MG CAPSULE PO SCH (08:44)
[2018-03-04] MEDS: NICOTINE PATCH (21MG) 21 MG PATCH.TD24 TD SCH (08:45)
[2018-03-04] MEDS: METOPROLOL TARTRATE 25 MG TABLET PO SCH ×2 (08:45→17:10)
[2018-03-04] MEDS: AMLODIPINE BESYLATE 2.5 MG TABLET PO SCH (08:45)
[2018-03-04] MEDS: PANTOPRAZOLE 40 MG TABLET.DR PO SCH (08:49)
[2018-03-04] MEDS: ENOXAPARIN SODIUM 30 MG/0.3 ML DISP.SYRIN SQ SCH (08:50)
[2018-03-04 16:00] VITALS: BP 143/85
[2018-03-04 19:37] VITALS: BP 167/97
[2018-03-04 19:38] VITALS: BP 167/97
[2018-03-04 20:00] VITALS: BP 158/89
[2018-03-04] MEDS: CEFTRIAXONE 1 G in IV D5W 50 ML IV SCH (20:29)
[2018-03-04] MEDS ORDERED: CLONIDINE HCL 0.1 MG TABLET PO PRN (21:00)
[2018-03-04] MEDS: TAMSULOSIN 0.4 MG CAP.SR.24H PO SCH (21:35)
[2018-03-04] MEDS: AZITHROMYCIN 500 MG in IV D5W 250 ML IV SCH (21:35)
[2018-03-04] MEDS: QUETIAPINE FUMARATE 100 MG TABLET PO SCH (21:36)
[2018-03-04] MEDS: SENNOSIDES 8.6 MG TABLET PO SCH (21:36)
[2018-03-04] MEDS: TRAZODONE 50 MG TABLET PO SCH (21:36)
[2018-03-04 22:30] VITALS: BP 141/83
[2018-03-05 06:43] LABS: BASOPHILS # (AUTO) 0.1 /CMM (0.0-0.2); BASOPHILS % (AUTO) 1.2 % (0.0-2.0); EOSINOPHILS % (AUTO) 17.9 % (0.0-6.0); HEMATOCRIT 34 % (39-51); HEMOGLOBIN 11.1 g/dL (13.5-17.5); LYMPHOCYTES # (AUTO) 1.8 /CMM (0.8-4.8); LYMPHOCYTES % (AUTO) 27.7 % (20.0-44.0); MEAN CORPUSCULAR HGB CONC 33 g/dl (31.0-36.0); MEAN CORPUSCULAR VOLUME 85 fL (80-96); MONOCYTES # (AUTO) 0.6 /CMM (0.1-1.30); MONOCYTES % (AUTO) 9.4 % (2.0-12.0); NEUTROPHILS # (AUTO) 2.8 /CMM (1.8-8.9); NEUTROPHILS % (AUTO) 43.8 % (43.0-81.0); PLATELET COUNT (AUTO) 179 /CMM (150-450); RDW COEFFICIENT OF VARIATION 15.1 (11.5-15.0); RED BLOOD CELL COUNT(AUTO) 3.97 MIL/uL (4.5-6.0); WHITE BLOOD COUNT (AUTO) 6.5 K/uL (4.3-11.0)
[2018-03-05 07:20] LABS: CALCIUM, SERUM 8.5 mg/dL (8.5-10.1); CREATININE 1.7 mg/dL (0.6-1.3); POTASSIUM 3.5 mmol/L (3.5-5.1)
[2018-03-05 08:00] VITALS: BP 149/93
[2018-03-05] MEDS: IPRATROPIUM NEB FS 0.5 MG/2.5 ML AMPUL.NEB NEB SCH ×2 (08:08→13:00)
[2018-03-05] MEDS: ALBUTEROL FS 2.5 MG/3 ML VIAL.NEB NEB SCH ×2 (08:08→13:00)
[2018-03-05] MEDS: FINASTERIDE (5 MG) 5 MG TABLET PO SCH (09:06)
[2018-03-05] MEDS: FLUOXETINE HCL 20 MG CAPSULE PO SCH (09:06)
[2018-03-05 09:08] VITALS: BP 149/93
[2018-03-05] MEDS: AMLODIPINE BESYLATE 2.5 MG TABLET PO SCH (09:08)
[2018-03-05] MEDS: NICOTINE PATCH (21MG) 21 MG PATCH.TD24 TD SCH (09:08)
[2018-03-05] MEDS: ATORVASTATIN 40 MG TABLET PO SCH (09:08)
[2018-03-05] MEDS: DOCUSATE SODIUM 100 MG CAPSULE PO SCH (09:08)
[2018-03-05] MEDS: clonazePAM 0.5 MG TABLET PO SCH (09:08)
[2018-03-05] MEDS: METOPROLOL TARTRATE 25 MG TABLET PO SCH (09:08)
[2018-03-05] MEDS: LACTOBACILLUS RHAMNOSUS GG 1 EACH CAP.SPRINK PO SCH (09:08)
[2018-03-05] MEDS: ENOXAPARIN SODIUM 30 MG/0.3 ML DISP.SYRIN SQ SCH (09:09)
[2018-03-05] MEDS: PANTOPRAZOLE 40 MG TABLET.DR PO SCH (09:12)
[2018-03-05] MEDS ORDERED: AZITHROMYCIN 250 MG TABLET PO SCH (21:00)
== END 2018-03-05 15:30 | DRG 871 ==
LOC: ER 19:14 → MED 22:00
PROVIDERS: ADMIT Legal Medicine; ATTEND Legal Medicine
DX: A41.9 Sepsis, unspecified organism (principal); J15.9 Unspecified bacterial pneumonia; N17.0 Acute kidney failure with tubular necrosis; N39.0 Urinary tract infection, site not specified; J44.0 Chronic obstructive pulmonary disease with (acute) lower respiratory infection; J91.8 Pleural effusion in other conditions classified elsewhere; N13.8 Other obstructive and reflux uropathy; I10 Essential (primary) hypertension; F41.9 Anxiety disorder, unspecified; H54.61 Unqualified visual loss, right eye, normal vision left eye; E78.5 Hyperlipidemia, unspecified; F03.90 Unspecified dementia, unspecified severity, without behavioral disturbance, psychotic disturbance, mood disturbance, and anxiety; Z79.899 Other long term (current) drug therapy; F25.9 Schizoaffective disorder, unspecified; N40.0 Benign prostatic hyperplasia without lower urinary tract symptoms
CPT/HCPCS: 36415; 71045-TC; 80048-TC; 80076-TC; 81000-TC; 83690-TC; 83735-TC; 84100-TC; 85025-TC; 85730-TC; 87081-TC; 87086-TC; 87186-TC; 97112-TC; 97116-TC; 97530-TC; A4606; J0456; J0696; J1650; J3475; J7030; J7060; Z7610

== ENCOUNTER 2018-05-12 13:38 | Inpatient (IN) | payer MEDICARE, MEDICAID ==
[~2018-05-12] VITALS: Ht 182.9 cm; Wt 91.6 kg
[~2018-05-12 13:38] MED LIST changes: +DOCU-141 PO; -FERR325T28 PO; +PANT40TA2 PO; -QUET25TA PO; -SENN-167 PO; +SENN-168 PO; +TRAZ-214 PO
--- NOTE | 2018-05-12 14:15 | NUR ---
PT BIB PRIVATE AMB, PT HERE FOR LOW BP TODAY & LOW ENERGY X1 WK PER SISTER. PT IS AAOX3, NOT IN RESPIRATORY DISTRESS, KEPT RESTED AND COMFORTABLE, WILL CONTINUE TO MONITOR, AWAITING ER MD FOR EVAL.
--- NOTE | 2018-05-12 14:19 | NUR ---
STARTED IVHL R HAND 20G
[2018-05-12] MEDS ORDERED: NICO-676 TD (14:37)
[2018-05-12] MEDS ORDERED: CEPH500T PO (14:37)
[2018-05-12] MEDS ORDERED: MIRT15TA7 PO (14:37)
[2018-05-12] MEDS ORDERED: ALBU2.5V38 IH (14:37)
[2018-05-12] MEDS ORDERED: IV NS 0.9% 1,000 ML BAG IV ONE (15:00)
--- NOTE | 2018-05-12 15:14 | NUR ---
Sarah jackson in ED - 05/12/18 at 1521 by LUZMA PT WHEELED TO RADIOLOGY FOR XRAY AND CT SCAN VIA JERMAINE.
--- NOTE | 2018-05-12 15:21 | NUR ---
PT WHEELED TO RADIOLOGY FOR XRAY AND CT SCAN [facility]
--- NOTE | 2018-05-12 15:30 | NUR ---
PT IS BACK FROM XRAY AND CT SCAN.
--- NOTE | 2018-05-12 15:50 | NUR ---
URINE SAMPLE COLLECTED AND SENT TO LAB.
--- NOTE | 2018-05-12 15:52 | NUR ---
URINE OUTPUT AT 1100ML WITH CLOUDY APPEARANCE REFERRED TO
[2018-05-12 15:54] LABS: APPEARANCE,URINE Turbid (CLEAR); BILIRUBIN,URINE Negative (NEGATIVE); BLOOD, URINE Large Ery/uL (NEGATIVE); COLOR,URINE Light yellow (YELLOW); KETONES,URINE Negative (NEGATIVE); LEUKOCYTE ESTERASE ,URINE Large (NEGATIVE); NITRITE, URINE Negative (NEGATIVE); PROTEIN,URINE >=300 mg/dl (NEGATIVE); UGLUCOSE Negative (NEGATIVE); UROBILINOGEN,URINE 0.2 EU/dL (0.2)
[2018-05-12 16:06] LABS: SQUAMOUS EPITHELIAL CELL,UR Rare /HPF (None Seen); WBC,URINE TOO NUMEROUS TO COUN /HPF (0-3)
[2018-05-12 16:10] LABS: BACTERIA,URINE Many /HPF (None Seen)
[2018-05-12 16:11] LABS: RBC,URINE 21-50 /HPF (0-2)
[2018-05-12 16:18] LABS: BASOPHILS % (AUTO) 0.3 % (0.0-2.0); EOSINOPHILS % (AUTO) 1.1 % (0.0-6.0); HEMATOCRIT 37 % (39-51); HEMOGLOBIN 11.9 g/dL (13.5-17.5); LYMPHOCYTES # (AUTO) 2.1 /CMM (0.8-4.8); LYMPHOCYTES % (AUTO) 19.5 % (20.0-44.0); MEAN CORPUSCULAR HGB CONC 32 g/dl (31.0-36.0); MEAN CORPUSCULAR VOLUME 86 fL (80-96); MONOCYTES # (AUTO) 1.1 /CMM (0.1-1.30); NEUTROPHILS # (AUTO) 7.4 /CMM (1.8-8.9); NEUTROPHILS % (AUTO) 69.1 % (43.0-81.0); PLATELET COUNT (AUTO) 313 /CMM (150-450); RED BLOOD CELL COUNT(AUTO) 4.31 MIL/uL (4.5-6.0); WHITE BLOOD COUNT (AUTO) 10.6 K/uL (4.3-11.0)
[2018-05-12] MEDS ORDERED: PIPERACILLIN /TAZOBACTAM 3.375 G in IV D5W 50 ML IV ONE (16:30)
[2018-05-12 16:31] LABS: CALCIUM, SERUM 7.7 mg/dL (8.5-10.1); CARBON DIOXIDE 20 mmol/L (21-32); CHLORIDE 104 mmol/L (98-107); CREATININE 2.2 mg/dL (0.6-1.3); GLUCOSE 108 mg/dL (74-106); POTASSIUM 3.6 mmol/L (3.5-5.1); SODIUM SERUM 137 mmol/L (136-145); UREA NITROGEN, BLOOD 62 mg/dL (7-18)
[2018-05-12 16:36] LABS: ALANINE AMINOTRANSFERASE 23 U/L (12-78); ALBUMIN 1.6 g/dL (3.4-5.0); ALKALINE PHOSPHATASE 44 U/L (46-116); ASPARTATE AMINOTRANSFERASE 16 U/L (15-37); BILIRUBIN,DIRECT 0.1 mg/dL (0.0-0.2); BILIRUBIN,TOTAL 0.3 mg/dL (0.2-1.0); TOTAL PROTEIN, SERUM 6.3 g/dL (6.4-8.2)
[2018-05-12 17:19] LABS: BAND % (MANUAL) 5 % (0.0-5.0); LYMPHOCYTES % (MANUAL) 14 % (16-48); MONOCYTES % (MANUAL) 7 % (0-11.0); MYELOCYTES % 2 % (0-0); NEUTROPHILS % (MANUAL) 70 (42-76); REACTIVE LYMPHOCYTES 2 % (0-0)
--- NOTE | 2018-05-12 17:37 | NUR ---
CALLED NURSING SUP REQUESTED TELE BED FOR THIS PATIENT
--- NOTE | 2018-05-12 17:49 | NUR ---
ASSESSED PT URINE OUTPUT FROM YOUNG CATH FOUND BLOODY URINE OUTPUT DR. THOMAS AWARE.
--- NOTE | 2018-05-12 17:59 | NUR ---
ADMIT TO ROOM 307-1 TELE DX SEPSIS ADMITTING KAREY VALDEZ
--- NOTE | 2018-05-12 18:30 | NUR ---
ENDORSED TO JENNIFER GALAN FOR JAMIN.
--- NOTE | 2018-05-12 18:52 | NUR ---
RN NOTE RECEIVED REPORT FROM ER NURSE. RECEIVED PATIENT IN STABLE CONDITION. NO SOB OR DISTRESS NOTED ON 2L/MIN VIA NASAL CANNULA. YOUNG CATHETER PRESENT WITH BLOODY HEMATURIA NOTED. ALL BELONGINGS WITH PATIENT AT BEDSIDE. CALL LIGHT WITHIN REACH. NO FACIAL GRIMACING NOTED FOR PAIN WILL ENDORSE TO CINDER BLOCK MASON NURSE FOR JAMIN
--- NOTE | 2018-05-12 19:50 | NUR ---
MACHINE INSTALLER NOTE: PATIENT RESTING IN BED, NO ACUTE DISTRESS NOTED, FAMILY AT BEDSIDE. BREATHING EVEN AND UNLABORED, NO SOB NOTED. IV TO RIGHT HAND IN PLACE. BED LOCKED AND IN LOWEST POSITION, CALL LIGHT IN REACH. WILL CONTINUE TO MONITOR.
[2018-05-12 20:00] VITALS: BP 108/68
[2018-05-12] MEDS ORDERED: ONDANSETRON HCL/PF 4 MG/2 ML VIAL IVP PRN (20:00)
[2018-05-12] MEDS ORDERED: HYDROCODONE/APAP 5/325MG 1 EACH TABLET PO PRN (20:00)
[2018-05-12] MEDS: IV NS 0.9% 1,000 ML IV SCH (20:00)
[2018-05-12] MEDS ORDERED: ZOLPIDEM TARTRATE 5 MG TABLET PO PRN (20:00)
[2018-05-12] MEDS ORDERED: MAGNESIUM HYDROXIDE 30 ML UDC PO PRN (20:00)
[2018-05-12] MEDS ORDERED: Z GUARD REMEDY 2 OZ OINT TP PRN (20:00)
[2018-05-12] MEDS ORDERED: ACETAMINOPHEN 325 MG TABLET PO PRN (20:00)
[2018-05-12] MEDS: ATORVASTATIN 40 MG TABLET PO SCH (21:12)
[2018-05-12] MEDS: TAMSULOSIN 0.4 MG CAP.SR.24H PO SCH (21:12)
[2018-05-12] MEDS: MIRTAZAPINE 15 MG TABLET PO SCH (21:12)
[2018-05-13] VITALS (7 sets, daily range): BP systolic 98–123; BP diastolic 60–75
[2018-05-13] MEDS ORDERED: PIPERACILLIN /TAZOBACTAM 3.375 G VIAL IV ONE ×2 (00:42→05:40)
[2018-05-13] MEDS: PIPERACILLIN /TAZOBACTAM 3.375 G in IV D5W 50 ML IV SCH ×2 (00:49→05:59)
--- NOTE | 2018-05-13 01:30 | NUR ---
SENIOR UNDERWRITING ASSISTANT NOTE: PATIENT CONTINUES TO HAVE HEMATURIA, REVIEWER SALES MD ON FLOOR AND PATIENT SEEN BY SAIMA MOJICA. AWARE OF HEMATURIA THAT WAS CAUSED BY YOUNG INSERTION EARLIER. NO NEW ORDERS AT THIS TIME. WILL CONTINUE TO MONITOR.
--- NOTE | 2018-05-13 06:05 | NUR ---
BALL SHAGGER NOTE: PATIENT RESTING IN BED, NO ACUTE DISTRESS NOTED. BREATHING EVEN AND UNLABORED, NO SOB NOTED. IV TO RIGHT HAND IN PLACE, INFUSING NS AT 75 ML/HR. BED LOCKED AND IN LOWEST POSITION, CALL LIGHT IN REACH. WILL ENDORSE TO DAY NURSE TO CONTINUE WITH PLAN OF CARE.
[2018-05-13 06:25] LABS: BASOPHILS % (AUTO) 0.2 % (0.0-2.0); HEMATOCRIT 36 % (39-51); HEMOGLOBIN 11.5 g/dL (13.5-17.5); LYMPHOCYTES # (AUTO) 1.9 /CMM (0.8-4.8); LYMPHOCYTES % (AUTO) 19.2 % (20.0-44.0); MEAN CORPUSCULAR HGB CONC 32 g/dl (31.0-36.0); MEAN CORPUSCULAR VOLUME 86 fL (80-96); MONOCYTES # (AUTO) 0.8 /CMM (0.1-1.30); MONOCYTES % (AUTO) 8.4 % (2.0-12.0); NEUTROPHILS % (AUTO) 71.2 % (43.0-81.0); PLATELET COUNT (AUTO) 332 /CMM (150-450); RED BLOOD CELL COUNT(AUTO) 4.19 MIL/uL (4.5-6.0); WHITE BLOOD COUNT (AUTO) 9.8 K/uL (4.3-11.0)
[2018-05-13 06:50] LABS: CALCIUM, SERUM 7.4 mg/dL (8.5-10.1); MAGNESIUM 1.7 mg/dL (1.8-2.4); PHOSPHORUS 3.8 mg/dL (2.5-4.9); POTASSIUM 3.4 mmol/L (3.5-5.1)
[2018-05-13 07:09] LABS: LYMPHOCYTES % (MANUAL) 14 % (16-48); MONOCYTES % (MANUAL) 4 % (0-11.0); NEUTROPHILS % (MANUAL) 78 (42-76)
[2018-05-13 07:10] LABS: METAMYELOCYTES % 1 % (0-0); MYELOCYTES % 3 % (0-0)
--- NOTE | 2018-05-13 07:20 | NUR ---
RN NOTES PATIENT ASLEEP BUT EASILY AWAKEN, NO S/SX OF PAIN OR DISCOMFORT AT THIS TIME, NEEDS ATTENDED, YOUNG CATHETER STILL NOTED WITH HEMATURIA. IVF INFUSING AT 75ML/HR. CALL LIGHT WITHIN REACH, WILL CONTINUE TO MONITOR.
[2018-05-13] MEDS ORDERED: ALBUTEROL FS 2.5 MG/3 ML VIAL.NEB NEB PRN (07:35)
[2018-05-13] MEDS: FINASTERIDE (5 MG) 5 MG TABLET PO SCH (08:12)
[2018-05-13] MEDS: DOCUSATE SODIUM 100 MG CAPSULE PO SCH (08:12)
[2018-05-13] MEDS: PANTOPRAZOLE 40 MG TABLET.DR PO SCH (08:12)
[2018-05-13] MEDS: FLUOXETINE HCL 20 MG CAPSULE PO SCH (08:12)
[2018-05-13] MEDS: AMLODIPINE BESYLATE 2.5 MG TABLET PO SCH (08:12)
[2018-05-13] MEDS: METOPROLOL TARTRATE 25 MG TABLET PO SCH ×2 (08:13→16:40)
[2018-05-13] MEDS: NICOTINE PATCH (14MG) 14 MG PATCH.TD24 TD SCH (08:13)
[2018-05-13] MEDS: IV NS 0.9% 1,000 ML IV SCH (09:53)
[2018-05-13] MEDS ORDERED: Magnesium 1GM/D5W 100ML PREMIX 100 ML IV SCH (11:09)
[2018-05-13] MEDS ORDERED: POTASSIUM CHLORIDE 10 MEQ TABLET.SA PO ONE (11:30)
[2018-05-13] MEDS: PIPERACILLIN /TAZOBACTAM 3.375 G in IV D5W 100 ML IV SCH ×2 (12:30→19:32)
[2018-05-13] MEDS: IV NS 0.9% 1,000 ML IV PRN (12:32)
--- NOTE | 2018-05-13 18:32 | NUR ---
RN NOTES PATIENT A/OX3, IN NO DISTRESS, RIGHT HAND IV PATENT AND FLUSHES WELL, ON NS AT 75ML/HR, BREATHING EVEN AND UNLABORED, NO SOB NOTED, SACRAL REDNESS COVERED WITH MEPILEX AND Z-GUARD. ASSISTED WITH TURNING AND REPOSITIONING, YOUNG CATHETER STILL NOTED WITH HEMATURIA. NEEDS ATTENDED AND MET, CALL LIGHT WITHIN REACH, WILL ENDORSE TO COUNT ROOM CLERK FOR JAMIN.
--- NOTE | 2018-05-13 19:40 | NUR ---
MS RN NOTE PATIENT A/OX3, IN NO ACUTE DISTRESS, RIGHT HAND IV PATENT AND FLUSHES WELL, CURRENTLY ON ZOSYN ATB, BREATHING EVEN AND UNLABORED, NO SOB NOTED, YOUNG CATHETER NOTED WITH HEMATURIA. CURRENT NEEDS ATTENDED AND MET, CALL LIGHT WITHIN REACH, WILL CONTINUE TO MONITOR.
[2018-05-13] MEDS: ATORVASTATIN 40 MG TABLET PO SCH (21:13)
[2018-05-13] MEDS: MIRTAZAPINE 15 MG TABLET PO SCH (21:13)
[2018-05-13] MEDS: TAMSULOSIN 0.4 MG CAP.SR.24H PO SCH (21:13)
[2018-05-13] MEDS: QUETIAPINE FUMARATE 100 MG TABLET PO SCH (21:14)
--- NOTE | 2018-05-13 21:56 | NUR ---
PAPER REWINDER NOTE PT SEEN BY DR. CUBA (UROLOGIST) IN REGARDS TO HEMATURIA IN YOUNG CATH. PER , SCANS FROM 2015 SHOW THAT THIS IS A CHRONIC PROBLEM AND THAT NO NEW ORDERS ARE NEEDED.
[2018-05-14] VITALS (7 sets, daily range): BP systolic 105–127; BP diastolic 62–80
[2018-05-14] MEDS: PIPERACILLIN /TAZOBACTAM 3.375 G in IV D5W 100 ML IV SCH ×3 (02:11→18:00)
--- NOTE | 2018-05-14 06:06 | NUR ---
DYNO TECHNICIAN NOTE PATIENT A/OX3, IN NO ACUTE DISTRESS, RIGHT HAND IV PATENT AND FLUSHES WELL. BREATHING EVEN AND UNLABORED, NO SOB NOTED, YOUNG CATHETER NOTED WITH HEMATURIA WITH OUTPUT OF 750 ML. CURRENT NEEDS ATTENDED TO AND MET, CALL LIGHT WITHIN REACH, WILL CONTINUE TO MONITOR. WILL ENDORSE TO COMING SHIFT.
[2018-05-14 06:27] LABS: CALCIUM, SERUM 7.3 mg/dL (8.5-10.1); CREATININE 1.8 mg/dL (0.6-1.3); MAGNESIUM 1.9 mg/dL (1.8-2.4); POTASSIUM 3.3 mmol/L (3.5-5.1)
--- NOTE | 2018-05-14 07:14 | NUR ---
MS/RN Patient received Patient received from slot shift manager, sleeping soundly at this time, appears in no distress. IV fluids infusing at 75ml/hr, no signs of infiltration seen. Call light within reach, bed in low setting, brakes locked, side rails X3 in upright position. Will continue to monitor and ensure safety.
[2018-05-14] MEDS: FINASTERIDE (5 MG) 5 MG TABLET PO SCH (08:25)
[2018-05-14] MEDS: DOCUSATE SODIUM 100 MG CAPSULE PO SCH (08:25)
[2018-05-14] MEDS: PANTOPRAZOLE 40 MG TABLET.DR PO SCH (08:25)
[2018-05-14] MEDS: AMLODIPINE BESYLATE 2.5 MG TABLET PO SCH (08:26)
[2018-05-14] MEDS: FLUOXETINE HCL 20 MG CAPSULE PO SCH (08:26)
[2018-05-14] MEDS: METOPROLOL TARTRATE 25 MG TABLET PO SCH ×2 (08:26→17:22)
[2018-05-14] MEDS: NICOTINE PATCH (14MG) 14 MG PATCH.TD24 TD SCH (08:27)
[2018-05-14] MEDS ORDERED: POTASSIUM CHLORIDE 10 MEQ TABLET.SA PO ONE (11:00)
--- NOTE | 2018-05-14 11:41 | NUR ---
WOUND CARE CONSULT: PT PRESENTS WITH RAISED PURPLE INTACT AREAS OF SKIN TO BILATERAL LOWER EXTREMITIES, ESPECIALLY LATERAL LOWER LEGS AND FEET, POSTERIOR LEFT ANKLE AREA, UNKNOWN ETIOLOGY. PT REPORTS THAT THERE IS PAIN WHEN AREAS ARE TOUCHED. PT NOTED TO HAVE DIFFUSE PURPLE AREAS TO LOWER EXTREMITIES WELL WITH EDEMA AND PURPLE DIFFUSE AREAS OF SKIN TO TRUNK OF BODY. DEFER TO PMD. CURRENT SCOTTIE SCORE IS 15. YOUNG CATH NOTED. ALL SKIN PROTECTION RECOMMENDATIOSN DISCUSSED WITH NURSING STAFF. WILL SEE PRN.
--- NOTE | 2018-05-14 12:16 | NUR ---
DR. NEUMANN INFORMED ABOUT DIFFUSE PURPLE AREAS TO LOWER EXTREMITIES, NO NEW ORDERS AT THIS TIME.
--- NOTE | 2018-05-14 14:35 | NUR ---
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
[2018-05-14] MEDS: IV NS 0.9% 1,000 ML IV PRN (17:22)
[2018-05-14] MEDS: ENSURE ENLIVE 237 ML LIQUID (VANILLA) PO SCH (17:41)
--- NOTE | 2018-05-14 18:21 | NUR ---
MS/RN End note Patient remains in stable condition, all needs addressed, has been turned and repositioned every 2-3 hours to prevent skin breakdown. Heels off loaded on pillows. All medications administered as ordered. Will endorse to warehouse supervisor 3rd shift.
--- NOTE | 2018-05-14 19:30 | NUR ---
MS NON PROFIT FINANCIAL CONTROLLER INITIAL NOTES SEEN PT IN BED RESTING WITH EYES CLOSED BUT AROUSE TO TOUCH, DENIES ANY PAIN OR ANY DISCOMFORT. HE DID NOT TOUCH HIS DINNER FOOD BUT HE FINISHED THE ENSURE. STILL WITH ANTIBIOTIC INFUSING AT THIS TIME, NO ADVERSE REACTION NOTED. NO SIGNS OF ANY DISCOMFORT OR ANY ACUTE DISTRESS NOTED. ON ISOLATION PRECAUTION MRSA NARES IMPLEMENTED AND OBSERVED. ENCOURAGE HIM TO USED THE CALL LIGHT SYSTEM IF HE NEEDS SOME HELPED OR ASSISTANCE. KEPT HIM WARM AND COMFORTABLE AT ALL TIMES. WILL CONTINUE MONITORING. PLACE CALL LIGHT AT REACH.
[2018-05-14] MEDS: ATORVASTATIN 40 MG TABLET PO SCH (21:12)
[2018-05-14] MEDS: MIRTAZAPINE 15 MG TABLET PO SCH (21:12)
[2018-05-14] MEDS: TAMSULOSIN 0.4 MG CAP.SR.24H PO SCH (21:12)
[2018-05-14] MEDS: QUETIAPINE FUMARATE 100 MG TABLET PO SCH (21:13)
--- NOTE | 2018-05-15 01:08 | NUR ---
MS BIBLICAL STUDIES PROFESSOR NOTES PT SLEEPING COMFORTABLY IN BED WITHOUT ANY ACUTE DISTRESS NOTED, RESPIRATION EVEN AND UNLABORED, STILL IVF STILL INFUSING. KEPT HIM WARM AND COMFORTABLE AT ALL TIMES. PLACE CALL LIGHT AT REACH WILL CONTINUE MONITORING.
[2018-05-15] MEDS: PIPERACILLIN /TAZOBACTAM 3.375 G in IV D5W 100 ML IV SCH ×3 (03:03→19:13)
[2018-05-15 06:35] LABS: CALCIUM, SERUM 7.6 mg/dL (8.5-10.1); CREATININE 1.5 mg/dL (0.6-1.3); POTASSIUM 3.5 mmol/L (3.5-5.1)
--- NOTE | 2018-05-15 06:49 | NUR ---
ms hay chopper closing notes pt remains resting after morning care done by HOME DAY CARE PROVIDER. ivf ns at 75ml/hr still infusing and all due meds given as ordered. slept well and stable lola the night. helms to gravity and draining well. kept him warm and comfortable at all times. still on contact isolation. bed in low and lock in position with side rails x2 up and bed alarm set for pt safety. will endorse to am nurse for continuity of care. place call light at reach.
--- NOTE | 2018-05-15 07:15 | NUR ---
RN NOTES PATIENT ASLEEP, NAD, VSS, BREATHING EVEN AND UNLABORED, NO SOB NOTED, PATIENT WITH NO S/SX OF PAIN OR DISCOMFORT AT THIS TIME. PATIENT STILL NOTED WITH PINK URINE. KEPT COMFORTABLE, NEEDS ATTENDED, CALL LIGHT WITHIN REACH, WILL CONTINUE TO MONITOR.
[2018-05-15 08:00] VITALS: BP 127/78
[2018-05-15] MEDS: FLUOXETINE HCL 20 MG CAPSULE PO SCH (08:32)
[2018-05-15] MEDS: PANTOPRAZOLE 40 MG TABLET.DR PO SCH (08:32)
[2018-05-15] MEDS: METOPROLOL TARTRATE 25 MG TABLET PO SCH ×2 (08:33→17:00)
[2018-05-15] MEDS: AMLODIPINE BESYLATE 2.5 MG TABLET PO SCH (08:33)
[2018-05-15] MEDS: FINASTERIDE (5 MG) 5 MG TABLET PO SCH (08:33)
[2018-05-15] MEDS: NICOTINE PATCH (14MG) 14 MG PATCH.TD24 TD SCH (08:33)
[2018-05-15] MEDS: DOCUSATE SODIUM 100 MG CAPSULE PO SCH (08:33)
[2018-05-15] MEDS: ENSURE ENLIVE 237 ML LIQUID (VANILLA) PO SCH ×3 (08:35→17:00)
[2018-05-15] MEDS: IV NS 0.9% 1,000 ML IV PRN (11:15)
[2018-05-15] MEDS: MUPIROCIN OINT 2% 22 GM TUBE TP SCH ×2 (13:55→20:09)
[2018-05-15 16:00] VITALS: BP 144/74
--- NOTE | 2018-05-15 16:30 | NUR ---
RN NOTES PATIENT TURNED AND REPOSITIONED EVERY2 HOURS, SUHAIL. HEELS OFFLOADED, SEEN BY DR. MORGAN. IN STABLE CONDITION, ENDORSED TO AUTOMOTIVE PROFESSIONAL JENNIFER CANSECO FOR JAMIN.
--- NOTE | 2018-05-15 18:14 | NUR ---
MS/RN NOTES RECEIVED PATIETN IN BED ON CONTACT ISOLATION FOR MRSA OF NARES, ABLE TO OPEN EYES AND COOPERATIVE TO TO CARE, RESPIRATIONS EVEN AND UNLABORED, RECEIVED ENDORSEMENT FROM AM RN FOR JAMIN.
[2018-05-15 20:00] VITALS: BP 147/89
[2018-05-15] MEDS: MUPIROCIN OINT 2% 22 GM TUBE SCH (20:10)
[2018-05-15] MEDS: QUETIAPINE FUMARATE 100 MG TABLET PO SCH (21:08)
[2018-05-15] MEDS: ATORVASTATIN 40 MG TABLET PO SCH (21:08)
[2018-05-15] MEDS: TAMSULOSIN 0.4 MG CAP.SR.24H PO SCH (21:08)
[2018-05-15] MEDS: MIRTAZAPINE 15 MG TABLET PO SCH (21:08)
[2018-05-16] MEDS: PIPERACILLIN /TAZOBACTAM 3.375 G in IV D5W 100 ML IV SCH ×2 (02:34→10:01)
--- NOTE | 2018-05-16 06:59 | NUR ---
307-1 MS/RN NOTES PATIENT REQUIRE FREQUENT MONITORING FOR SAFETY, RESPIRATIONS EVEN AMD UNLABORED, SKIN WARM TO TOUCH, KEPT COMFORTABLE. WILL MONITOR. WILL ENDORSE TO AM RN FOR JAMIN.
--- NOTE | 2018-05-16 07:10 | NUR ---
RN NOTES PATIENT A/OX3, BREATHING EVEN AND UNLABORED, NO SOB NOTED, IVF INFUSING AND TOLERATING WELL, SUHAIL. HEELS OFFLOADED, KEPT COMFORTABLE, NEEDS ATTENDED, CALL LIGHT WITHIN REACH, WILL CONTINUE TO MONITOR.
[2018-05-16 08:00] VITALS: BP 134/78
[2018-05-16] MEDS ORDERED: NITR100C PO (08:54)
[2018-05-16] MEDS: DOCUSATE SODIUM 100 MG CAPSULE PO SCH (09:09)
[2018-05-16 09:10] VITALS: BP 134/78
[2018-05-16] MEDS: FLUOXETINE HCL 20 MG CAPSULE PO SCH (09:10)
[2018-05-16] MEDS: PANTOPRAZOLE 40 MG TABLET.DR PO SCH (09:10)
[2018-05-16] MEDS: FINASTERIDE (5 MG) 5 MG TABLET PO SCH (09:10)
[2018-05-16] MEDS: METOPROLOL TARTRATE 25 MG TABLET PO SCH (09:10)
[2018-05-16] MEDS: AMLODIPINE BESYLATE 2.5 MG TABLET PO SCH (09:10)
[2018-05-16] MEDS: NICOTINE PATCH (14MG) 14 MG PATCH.TD24 TD SCH (09:10)
[2018-05-16] MEDS: MUPIROCIN OINT 2% 22 GM TUBE TP SCH (09:13)
[2018-05-16] MEDS: ENSURE ENLIVE 237 ML LIQUID (VANILLA) PO SCH (09:14)
[2018-05-16] MEDS: MUPIROCIN OINT 2% 22 GM TUBE SCH (09:15)
--- NOTE | 2018-05-16 11:31 | NUR ---
RN NOTES SKIN ASSESSMENT COMPLETED, PHOTOS TAKEN OF SKIN, SACRAL AREA NOTED TO HAVE AN OPENING OF 0.5CM X0.5CM, CHARGE NURSE JESSI MADE AWARE. CHANEL LANDAVERDE MADE AWARE. PER SUPPLIER MANAGER, APPLY Z-GUARD. Z-GUARD APPLIED FOR PROTECTION. PATIENT ASSISTED WITH TURNING AND REPOSITIONING, SUHAIL. HEELS OFFLOADED, HOWEVER, PATIENT NOTED TO BE MOVING HIS LEGS AND RUBBING IT ON THE SHEET BACK AND FORTH. INSTRUCTED PATIENT TO KEEP LEGS ELEVATED ON THE PILLOW. NEEDS ATTENDED AND MET, CALL LIGHT WITHIN REACH, WILL CONTINUE TO MONITOR.
[2018-05-16] MEDS ORDERED: SULF1TAB48 PO (12:02)
--- NOTE | 2018-05-16 13:10 | NUR ---
TRACK VEHICLE REPAIRER PATIENT A/OX3, BREATHING EVEN AND UNLABORED, ON O2 AT 2LPM VIA NC, NO SOB NOTED, DENIES PAIN OR DISCOMFORT. YOUNG CATHETER IN PLACED, DRAINING WITH KLEVER URINE COLOR, SKIN ASSESSMENT COMPLETED, PHOTOS TAKEN AND PLACED IN CHART, PIV ON RIGHT HAND REMOVED AND APPLIED GAUZE AND TAPE. PATIENT RECEIVED DISCHARGE INSTRUCTIONS AND VERBALIZED UNDERSTANDING, PER PATIENT "I CANT SIGN". PATIENT UNABLE TO SIGN, WITNESSED BY ANOTHER NURSE. WOUND TREATMENT RENDERED TO SUHAIL. LOWER EXT AND SACRAL AREA. NEEDS ATTENDED AND MET, REPORT GIVEN TO AJ AT [facility]. VSS, LEFT THE FACILITY VIA AMBULANCE.
== END 2018-05-16 13:15 | DRG 177 ==
LOC: ER 13:48 → TELE 18:18 → MED 05-14 08:52
PROVIDERS: ADMIT Nurse Practitioner Acute Care; ATTEND Nurse Practitioner Acute Care
DX: J15.6 Pneumonia due to other Gram-negative bacteria (principal); G92 Toxic encephalopathy; E43 Unspecified severe protein-calorie malnutrition; J80 Acute respiratory distress syndrome; N39.0 Urinary tract infection, site not specified; N17.9 Acute kidney failure, unspecified; N13.4 Hydroureter; K82.0 Obstruction of gallbladder; I12.9 Hypertensive chronic kidney disease with stage 1 through stage 4 chronic kidney disease, or unspecified chronic kidney disease; N18.9 Chronic kidney disease, unspecified; H54.61 Unqualified visual loss, right eye, normal vision left eye; E78.5 Hyperlipidemia, unspecified; F20.9 Schizophrenia, unspecified; F03.90 Unspecified dementia, unspecified severity, without behavioral disturbance, psychotic disturbance, mood disturbance, and anxiety; F17.200 Nicotine dependence, unspecified, uncomplicated; F41.9 Anxiety disorder, unspecified; I25.10 Atherosclerotic heart disease of native coronary artery without angina pectoris; Z79.899 Other long term (current) drug therapy; N28.1 Cyst of kidney, acquired; Z98.890 Other specified postprocedural states; E66.9 Obesity, unspecified; N40.0 Benign prostatic hyperplasia without lower urinary tract symptoms; Z68.27 Body mass index [BMI] 27.0-27.9, adult; N20.0 Calculus of kidney; D64.9 Anemia, unspecified; F29 Unspecified psychosis not due to a substance or known physiological condition; B95.7 Other staphylococcus as the cause of diseases classified elsewhere; L89.520 Pressure ulcer of left ankle, unstageable; L89.890 Pressure ulcer of other site, unstageable; R23.8 Other skin changes; Z22.322 Carrier or suspected carrier of Methicillin resistant Staphylococcus aureus; L30.4 Erythema intertrigo; D69.2 Other nonthrombocytopenic purpura
CPT/HCPCS: 36415; 70450-TC; 71045-TC; 80048-TC; 80061-TC; 80076-TC; 81000-TC; 82962-TC; 83605-TC; 83735-TC; 84100-TC; 84484-TC; 85025-TC; 85730-TC; 87040-TC; 87070-TC; 87081-TC; 87086-TC; 97110-TC; 97116-TC; 97530-TC; A4606; G0378; J2543; J3475; J7030; J7060; Z7610